=== PATIENT | male | born 1965 | race Caucasian/White ===

== ENCOUNTER 2018-12-04 21:22 | Emergency (ER) | payer SELFPAY ==
[~2018-12-04] VITALS: Ht 165.1 cm; Wt 74.5 kg
[2018-12-04 21:25] VITALS: BP 144/86; PULSE 81; RESP 18; Ht 165.1 cm; Wt 74.5 kg
--- NOTE | 2018-12-04 22:55 | ERD ---
ER Documentation Chief Complaint Chief Complaint ANXIETY, MOUTH SORES. PT BELIEVES IT MAY BE AN STD HPI 53-year-old male presents with complaint of sore throat for the past month and a half. States that he thinks he might have an STD as he was sexually active and performed oral sex on his female partner 1/2 months ago after which she started noticing the symptoms of sore throat. Denies any trismus, drooling, muffled voice, treatments, fevers. Denies any allergies. She denies any vaccines. ROS All systems reviewed and are negative except as per history of present illness. Allergies Allergies: Coded Allergies: No Known Allergy (Unverified , 12/04/18) PMhx/Soc Medical and Surgical Hx: pt denies Medical Hx, pt denies Surgical Hx Hx Alcohol Use: No Hx Tobacco Use: No Smoking Status: Never smoker FmHx Family History: No diabetes, No coronary disease, No other Physical Exam Vitals Vital Signs Date Temp Pulse Resp B/P (MAP) Pulse Ox O2 O2 Flow FiO2 Time Delivery Rate 12/04/18 98.6 81 18 144/86 99 21:25 (105) Physical Exam Const: No acute distress Head: Atraumatic Eyes: Normal Conjunctiva ENT: Normal External Ears, Nose and Mouth. Tonsils are nonedematous or erythematous with no exudates bilaterally. Uvula is midline. There are no peritonsillar masses noted. Neck: Full range of motion. No meningismus. Resp: Clear to auscultation bilaterally Cardio: Regular rate and rhythm, no murmurs Abd: Soft, non tender, non distended. Normal bowel sounds Skin: No petechiae or rashes Back: No midline or flank tenderness Ext: No cyanosis, or edema Neur: Awake and alert Psych: Normal Mood and Affect Results 24 hrs Current Medications Medications Dose Sig/Nenita Start Time Status Last (Trade) Ordered Route PRN Stop Time Admin Dose Reason Admin 1,000 mg ONCE ONCE 12/04/18 DC 12/04/18 Azithromycin PO 23:00 23:27 (Zithromax) 12/04/18 23:01 Ceftriaxone 250 mg ONCE ONCE 12/04/18 DC 12/04/18 Sodium IM 23:00 23:27 (Rocephin) 12/04/18 23:01 Lidocaine 5 ml ONCE ONCE 12/04/18 DC 12/04/18 (Xylocaine INJ 23:00 23:27 1% (Mpf)) 12/04/18 23:01 Lorazepam 1 mg ONCE ONCE 12/04/18 DC 12/04/18 (Ativan) PO 23:00 23:27 12/04/18 23:01 Procedures/MDM MDM: Symptoms started after oral sex therefore is very possible that patient has a orally contracted STD causing his symptoms. Gonorrhea and Chlamydia were sent out for culture and patient was treated empirically in the ER for both. Strep test was negative. I have low suspicion for epiglottitis, peritonsilar abscess, ludwigs angina, retropharyngeal abscess, or other emergent etiologies based on patients exam and history. Patient discharged with strict ER precautions. Patient advised to follow up with PMD. All questions answered at discharge. KRISTEN VERA Dec 04, 2018 22:55
[2018-12-04] MEDS ORDERED: LIDOCAINE 1% (MPF) 5 ML VIAL INJ ONE (23:00)
[2018-12-04] MEDS ORDERED: CEFTRIAXONE 250 MG INJ IM ONE (23:00)
[2018-12-04] MEDS ORDERED: LORAZEPAM 1 MG TAB PO ONE (23:00)
[2018-12-04] MEDS ORDERED: AZITHROMYCIN 500 MG TAB PO ONE (23:00)
[2018-12-04] MEDS ORDERED: IBUP-1542 PO (23:52)
== END 2018-12-05 00:43 | disposition home or self-care (01) ==
LOC: FTE 21:22
DX: K13.79 Other lesions of oral mucosa (principal); F41.9 Anxiety disorder, unspecified
CPT/HCPCS: 87591; 87880; 96372; 99284; J0696; 87110